=== PATIENT | male | born 1965 | race African-American/Black ===

== ENCOUNTER 2017-04-08 06:33 | Day surgery (SDC) | payer OTHER ==
--- NOTE | 2017-04-07 18:30 | Pre-Procedure Note/Attestation ---
Pre-Procedure Note/Attestation Complete Prior to Procedure Planned Procedure: left Procedure Narrative: Left ear canalplasty Indications for Procedure Pre-Operative Diagnosis: Left ear canal stenosis Attestation I attest that I discussed the nature of the procedure; its benefits; risks and complications; and alternatives (and the risks and benefits of such alternatives ), prior to the procedure, with the patient (or the patient's legal hospital sales representative). I attest that, if there was a reasonable possibility of needing a blood transfusion, the patient (or the patient's legal hospital sales representative) was given the [facility] standardized written summary, pursuant to the [place] Blood Safety Act ([place] Health and Safety Code # 1645, as amended). I attest that I re-evaluated the patient just prior to the surgery and that there has been no change in the patient's H&P by Dr. Abdirahman Bates. SHAUNA BRADY Apr 07, 2017 18:30
[~2017-04-08] VITALS: Ht 182.9 cm; Wt 108.4 kg
[2017-04-08] VITALS (13 sets, daily range): BP systolic 109–151; BP diastolic 77–98
[~2017-04-08 06:33] MED LIST: ATORVASTATIN CA20 MG ORAL; Dexamethasone 4mg/ml vial IVP ONE; ceFAZolin sod 1 GM in D5W 55 ML IV ONE
[2017-04-08] MEDS ORDERED: [UNRECOGNIZED DRUG - OTHER] ONE (07:40)
--- NOTE | 2017-04-08 07:42 | General Progress Note ---
Progress Note Progress Note Pt. has decided he would like to do both ears today. I did discuss with him and his fiance that he would have muffled hearing secondary to the packing in both ears. He states he understands and wishes to have both ear canals repaired today. This discussion took place in the pre op prep area before any medications given to the pt. Nurse was witness to the change in consent. SHAUNA BRADY Apr 08, 2017 07:42
[2017-04-08] MEDS ORDERED: Propofol 10mg/ml 100ml btl IV ONE (08:00)
[2017-04-08] MEDS ORDERED: Sterile Water Irrig 1000ml IRRIG ONE (09:00)
[2017-04-08] MEDS ORDERED: fentaNYL 100 mcg/2 mL IV ONE ×2 (09:00→10:02)
[2017-04-08] MEDS ORDERED: Dexamethasone 4mg/ml vial ONE (09:00)
[2017-04-08] MEDS ORDERED: NS Irrig 1000ml ONE (09:00)
[2017-04-08] MEDS ORDERED: fentaNYL 100 mcg/2 mL ONE (09:00)
--- NOTE | 2017-04-08 09:37 | Anethesia Preoperative Eval ---
Anesthesia Pre-op PMH/ROS General Date of Evaluation: Apr 08, 2017 Time of Evaluation: 08:56 ASA Score: ASA 2 Mallampati Score Class I : Soft palate, uvula, fauces, pillars visible Class II: Soft palate, uvula, fauces visible Class III: Soft palate, base of uvula visible Class IV: Only hard plate visible Mallampati Classification: Class I Anesthesia History: none Family History: no anesthesia problems Allergies: Coded Allergies: No Known Allergies (Unverified , 04/07/17) Past Medical History Endocrine: Reports: DM, hypothyroidism, other, steroids Anesthesia Pre-op Phys. Exam Physician Exam Last Vital Signs Date Time Temp Pulse Resp B/P Pulse Ox O2 Delivery O2 Flow Rate FiO2 04/08/17 07:29 97.1 56 18 109/85 98 Room Air Constitutional: NAD Neurologic: CN 2-12 intact Cardiovascular: RRR Respiratory: CTA Airway Exam Mallampati Score: Class I MO: full ROM: full Teeth: intact Anesthesia Pre-op A/P Risk Assessment & Plan Plan: GA LMA Status Change Before Surgery: No Pre-Antibiotics Given Within 1 Hr of Incision: Yes Gualberto Atkins M.D. Apr 08, 2017 09:37
--- NOTE | 2017-04-08 09:40 | Immediate Post-Op Evaluation ---
Immediate Post-Op Evalulation Immediate Post-Op Evalulation Procedure: Bilateral Ear Canalplasty Date of Evaluation: Apr 08, 2017 Time of Evaluation: 10:30 IV Fluids: 800 Blood Products: 0 Estimated Blood Loss: 0 Urinary Output: 0 Blood Pressure Systolic: 119 Blood Pressure Diastolic: 73 Pulse Rate: 76 Respiratory Rate: 16 O2 Sat by Pulse Oximetry: 100 Temperature (Fahrenheit): 98 Pain Score (1-10): 0 Nausea: No Vomiting: No Patient Status: awake, reacts, patent, extubated Hydration Status: adequate Given Within 1 Hr of Incision: Yes Gualberto Atkins M.D. Apr 08, 2017 09:40
--- NOTE | 2017-04-08 09:42 | 48 Hour Post Anesthesia Eval ---
Post Anesthesia Evaluation Procedure: Bilateral Ear Canalplasty Date of Evaluation: Apr 10, 2017 Time of Evaluation: 08:00 Blood Pressure Systolic: 137 0: 76 Pulse Rate: 76 Respiratory Rate: 16 Temperature (Fahrenheit): 98 O2 Sat by Pulse Oximetry: 100 Airway: patent Nausea: No Vomiting: No Hydration Status: adequate Mental Status/LOC: patient returned to baseline Follow-up care needed: patient intructions given Gualberto Atkins M.D. Apr 08, 2017 09:41
--- NOTE | 2017-04-08 09:53 | Brief Operative Note ---
Immediate Post Operative Note Operative Note Chief Complaint: Bilateral ear canal stenosis Pre-op Diagnosis: Left and right ear canal stenosis Procedure: Bilateral ear canal stenosis repair Post-op Diagnosis: same as pre-op Surgeon: Shauna Brady Commissary Representative: none Additional Surgeons: none Anesthesiologist: Sparkle Anesthesia: general Specimen: yes - right and left ear canal stenosis Complications: none Condition: stable Estimated Blood Loss: volume - 5cc Drains: none Packing: Neosporin ointmant Implant(s) used?: No SHAUNA BRADY Apr 08, 2017 09:53
--- NOTE | 2017-04-08 09:55 | Discharge Instructions ---
Discharge Instructions Discharge Instructions Follow up with: next week Dr. Brooke office-pt already has appth Diet: regular Resume Normal Activity?: No Activity: light activity Pneumonia Vaccine: pt refused vaccine Influenza Vaccine (May to Oct): pt refused vaccine Follow Up Orders pt has printed instructions Return to Work/School on: Apr 22, 2017 For Surgical Patients Contact your physician for: bleeding, pain, tenderness, redness, swelling, yellowish discharge in the op. site For Congestive Heart Failure Reminder Report to your physician any weight gain of 5 pounds or more in one week. SHAUNA BRADY Apr 08, 2017 09:55
[2017-04-08] MEDS: fentaNYL 100 mcg/2 mL IV PRN ×3 (10:04→10:28)
[2017-04-08] MEDS ORDERED: Lidocaine 1% 10mg/ml/Epi 0.005mg/ml 30ml vial INJ ONE (10:10)
[2017-04-08] MEDS ORDERED: Hydromorphone 0.5mg/0.5ml inj ONE (10:29)
[2017-04-08] MEDS ORDERED: fentaNYL 100 mcg/2 mL IV PRN ×2 (10:30→10:45)
[2017-04-08] MEDS: Hydromorphone 0.5mg/0.5ml inj IVP PRN ×2 (10:32→10:48)
[2017-04-08] MEDS ORDERED: Morphine Sulfate 2mg/ml Inj IVP PRN (10:45)
[2017-04-08] MEDS ORDERED: Ketorolac 30mg Inj IV PRN ×2 (10:45)
[2017-04-08] MEDS ORDERED: Hydromorphone 0.5mg/0.5ml inj IVP PRN (10:45)
[2017-04-08] MEDS ORDERED: Norco 5mg/325mg tab ORAL PRN (16:01)
[2017-04-08] MEDS ORDERED: HYDROmorphone 1mg/ml Carpuject SUBQ PRN (16:01)
[2017-04-08] MEDS ORDERED: Metoclopramide 10mg/2ml Inj IVP PRN (16:01)
--- NOTE | 2017-04-09 00:45 | Operative Note - Dictated ---
DATE OF OPERATION: 04/08/2017 SURGEON: Edward Munoz M.D. INDICATION FOR SURGERY: Bilateral ear canal stenosis. PREOPERATIVE DIAGNOSIS: Bilateral ear canal stenosis. POSTOPERATIVE DIAGNOSIS: Bilateral ear canal stenosis. FINDINGS: Bilateral ear canal stenosis. PROCEDURE: Bilateral ear canal stenosis repair. The patient was awake, alert, and stable in the operating room prior to transfer to the recovery room. TECHNIQUE: Time-out was performed. All agreed as to the procedure and equipment indicated. Initially, I addressed the right ear via the microscope, cleaning it with alcohol and removing cerumen with suction and ear splint. I then placed Gelfoam over the eardrum to protect it and made an incision with a myringotomy knife across the epithelial lining over the osteoma causing ear canal stenosis. Once this was folded back, I then used a small osteotome to remove the cartilage and then removed it with an alligator forceps. I then folded back the epithelial covering, placed Gelfoam over it after removing the Gelfoam over the eardrum to make sure it was intact, put it back in position. I then proceeded to fill the remainder of the ear canal laterally with Neosporin ointment. A piece of cotton was placed. Before packing the right ear, I did check the eardrum, it was intact. New Gelfoam was placed and Ciprodex was placed on the Gelfoam. I then turned my attention to the left ear canal. Microscope in position, followed a similar pattern, covering the eardrum with Gelfoam to protect it, then folding back the epithelial lining, removing the exostosis with a small osteotome and then pulling back the epithelium, placing Gelfoam over this and then antibiotic ointment. TM intack at end of case. Sponge and needle count was correct. ESTIMATED BLOOD LOSS: 5 mL. COMPLICATIONS: None. DRAINS: None. SPECIMENS: Two specimens were sent, one from the right ear and one from the left ear. Edward Munoz M.D. DR: KHURRAM JOB#: [id number] CC: THEODORE
== END 2017-04-08 12:25 | disposition home or self-care (01) ==
LOC: SUR 06:33
DX: H61.303 Acquired stenosis of external ear canal, unspecified, bilateral (principal); E78.2 Mixed hyperlipidemia; F43.21 Adjustment disorder with depressed mood; J30.9 Allergic rhinitis, unspecified; E03.9 Hypothyroidism, unspecified; G47.9 Sleep disorder, unspecified; R53.83 Other fatigue
CPT/HCPCS: 69310; J0690; J1100; J1170; J1885; J2704; J3010; 94003; 94150